=== PATIENT | female | born 1970 | race Caucasian/White ===

== ENCOUNTER 2017-04-16 15:06 | Emergency (ER) | payer OTHER ==
[~2017-04-16] VITALS: Ht 165.1 cm; Wt 81.8 kg
[2017-04-16 15:06] VITALS: BP 169/102; PULSE 79; RESP 20; O2SAT 98
[~2017-04-16 15:06] MED LIST: ATEN25TA7 PO
[2017-04-16] MEDS ORDERED: diphenhydrAMINE 25 mg Capsule PO ONE ×2 (16:08→16:40)
--- NOTE | 2017-04-16 16:12 | ED.REPORT ---
HPI-Allergic Reaction Date of Service Apr 16, 2017 ED Provider: Rock Parada MD Pt is a 46 y/o female with a history of anxiety who presents to the ED via EMS c /o redness and itching on her face s/p taking metoprolol onset around 2229 last night. She was recently switched from atenolol to metoprolol for her anxiety and believes she is having an allergic reaction to it. Pt describes the redness , itching, and tingling as starting on her bottom lip that spread to her face and chest. She states that she has had similar symptoms previously with allergic reactions, and they have started on her head and then spread downward. Additional symptoms include redness in her arm and chest, anxiety, and tingling on her face that has resolved. She denies tongue swelling, SOB, nausea, vomiting , or voice changes. She last took metoprolol last night around 1929. Nursing Notes Stated Complaint: ALLERGIC REACTION Chief Complaint: Allergic Reaction Nursing Notes Reviewed: Yes (Acquisio, Boutique Window not reconciled) Allergies: Coded Allergies: Bumble Bee (Verified Allergy, Unknown, UNKNOWN, 05/29/13) Sulfa (Sulfonamide Antibiotics) (Verified Allergy, Unknown, UNKNOWN, 05/29) amoxicillin (Verified Allergy, Unknown, UNKNOWN, 05/29/13) fexofenadine (Verified Allergy, Unknown, UNKNOWN, 05/29/13) garlic (Verified Allergy, Unknown, 04/16/17) pseudoephedrine (Verified Allergy, Unknown, UNKNOWN, 05/29/13) tree nut (Verified Allergy, Unknown, 04/16/17) Uncoded Allergies: SEAFOOD (Allergy, Severe, 04/16/17) POLLENS (Allergy, Unknown, UNKNOWN, 05/29/13) Scheduled Atenolol-Expunged Drug, Do Not Renew! (Atenolol-Expunged Drug, Do Not Renew!) 25 Mg Tablet 25 MG PO DAILY General Time Seen by MD: 16:05 Chief Complaint Allergic reaction Hx Obtained From: Patient, Son Arrived By: Ambulance Onset Occurred: Yesterday Symptom Duration: Constant Quality: Painful Severity: Current: Mild Severity: Maximum: Mild Recent Healthcare: Recent doctor visit Similar Sx Previous: Yes Past Medical History Past Medical History Anxiety Past Surgical History Tubal ligation Reports: Tonsillectomy Social History Alcohol Use: "Social" Other Social History: Good social support Ambulatory Status Independent Review of Systems Redness on face, arm, and chest Tingling on face that has resolved Denies voice changes Ears / Nose / Throat: Denies: Tongue swelling Respiratory: Denies: Shortness of breath GI: Denies: Nausea, Vomiting Allergy / Immune: Reports: Allergic reaction, Itching Complete sys rev & neg: except as marked. Physical Exam Initial Vital Signs Vital Signs (First) Date Time Temp Pulse Resp B/P Pulse Ox O2 Delivery O2 Flow Rate FiO2 04/16/17 15:06 36.6 79 20 169/102 98 Room Air Initial VS: Reviewed, Vital signs normal (except HTN) Neck: Supple, Full range of motion Abdomen / GI: Soft, Non-tender Extremities: Vascular intact, Neuro intact, No swelling, No tenderness Neurologic: Alert, Oriented, Nonfocal Psychiatric: Mood/affect normal, Behavior normal, Normal thought content General/Constitutional: Awake, Alert Respiratory / Chest: Atraumatic, Breath sounds NL, Breath sounds = bilat, No respiratory distress Cardiovascular: Heart rate NL, Regular rhythm, Heart sounds NL Skin: Warm, Dry Faint erythema on front chest that does not look like hives Re-Eval/Medical Decision Med Decision/Clinical Course This is a 46-year-old female presents with a concern for an adverse reaction to metoprolol. Patient denied atenolol, but there is thin reduction issues so on Sunday was transitioned metoprolol, since starting that she started feel weird, her blood pressures also come up a bit, and then she developed some tingling all over, and some little discomfort winter PCP where she has found a more hypertensive blood pressure 190 and sent to the ED. Nice chest pain, headache, focal deficit, shortness of breath, or additional plain blood pressure was elevated, is not as high as it was at the clinic. Additionally she felt some redness across the chest and face that was starting to itch, but had no wyatt definite angioedema, no bronchospasm or shortness breath, no definitive urticaria, no nausea or GI symptoms. She adverse reactions to other medicines. Patient's nontoxic has faint erythema across the chest reports a little bit of faint itching-although it's not again classic urticarial. She received an oral Benadryl. The plan is to start on amlodipine and she received first dose. Blood pressures did improve. I'm not finding indication for additional laboratory testing emergently. Patient's couple with this. She is being discharged on new amlodipine, she can take Benadryl when necessary-and will stay way from metoprolol. Source of Hx: Old records Differential Diagnosis: Positive: Allergic reaction, Drug reaction, Negative: Angioneurotic edema, Erythema multiforme, Gastroenteritis, Hemolytic uremic syndrome, Idiopathic thromb purpura, Seasonal allergy, Foy- Robert syndrome, Urticaria Counseled Regarding: Diagnosis, Lab results, Need for follow-up, When/why to return to ED Discharge & Departure Primary Impression: Adverse reaction to drug Encounter type: initial encounter Qualified Code: T88.7XXA - Unspecified adverse effect of drug or medicament, initial encounter Additional Impression: HTN (hypertension) Hypertension type: unspecified secondary hypertension Qualified Code: I15.9 - Secondary hypertension, unspecified Disposition: Home Discharge Condition All VS Reviewed: Yes Condition: Stable Additional Instructions: 1. Stop the metoprolol. From now on, list it as a medication allergy. 2. Start the new blood pressure medication amlodipine - you received a first dose in the ED. 3. Activities as tolerated 4. Return if new or worsening symptoms. Referrals: Emi Belle MD (PCP) [facility] Attestation Portions of this note were transcribed by Marizol Gudino. I, Dr. Parada, personally performed the history, physical exam and medical decision-making; I reviewed and confirmed the accuracy of the information in the transcribed note. Signed by: Mitchell Buckley, 04/16/17. copies to: Emi Belle MD, Matthew F MD Apr 16, 2017 16:12 Marizol Gudino Apr 16, 2017 16:26
[2017-04-16 18:37] VITALS: BP 128/82; PULSE 82; RESP 20; O2SAT 98
== END 2017-04-16 18:15 | disposition home or self-care (01) ==
LOC: SED 15:06
DX: L29.9 Pruritus, unspecified (principal); R20.2 Paresthesia of skin; R23.8 Other skin changes; F41.9 Anxiety disorder, unspecified; T44.7X5A Adverse effect of beta-adrenoreceptor antagonists, initial encounter; Y93.89 Activity, other specified; Y92.89 Other specified places as the place of occurrence of the external cause; Y99.8 Other external cause status; I10 Essential (primary) hypertension; Z90.89 Acquired absence of other organs; Z88.1 Allergy status to other antibiotic agents; Z88.2 Allergy status to sulfonamides; Z88.8 Allergy status to other drugs, medicaments and biological substances; Z91.018 Allergy to other foods; Z91.030 Bee allergy status